=== PATIENT | female | born 1940 | race Caucasian/White ===

== ENCOUNTER 2023-08-07 18:17 | Emergency (ER) | payer MEDICARE ==
[2023-08-07] MEDS ORDERED: Boostrix 0.5 ML (Tdap) VIAL (>/=7 yrs of age) ONE (20:04)
[2023-08-07] MEDS ORDERED: Amoxicillin/Potassium Clav 875 MG TAB ONE (20:04)
[2023-08-07 20:47] LABS: #Basophils 0.06 10x3/uL (0.0-0.2); %Basophils 0.8 % (0.0-1.0); %Eosinophils 1.8 % (0.0-10.0); %Lymphocytes 20.7 % (21.0-51.0); %Monocytes 9.7 % (0.0-10.0); %Neutrophils 66.6 % (42.0-75.0); Hematocrit 39.4 % (36.0-47.0); Mean Corpuscular Hemoglobin 32.6 pg (27.0-31.0); Mean Corpuscular Volume 98.7 fL (78.0-98.0); Mean Platelet Volume 10.2 fL (7.4-10.4); Platelet Count 156 10x3/uL (130-400); RBC Distribution Width 13.2 % (11.5-14.5); Red Blood Cell (RBC) Count 3.99 mill/uL (4.20-5.40)
[2023-08-07 21:02] LABS: ALT (SGPT) 13 U/L (8-55); AST (SGOT) 19 U/L (5-34); Albumin 4.2 g/dL (3.4-4.8); Alkaline Phosphatase 64 U/L (40-110); Anion Gap 15 mmol/L (10-20); BUN (Urea Nitrogen) 21 mg/dL (9.8-20.1); Bilirubin, Total 1.4 mg/dL (0.2-1.2); Calc. Creatinine Clearance 0 mL/min (70-130); Calcium 9.8 mg/dL (7.8-10.44); Carbon Dioxide 23 mmol/L (23-31); Chloride 104 mmol/L (98-107); Estimated GFR 58; Globulin 3.1 g/dL (2.4-3.5); Glucose 104 mg/dL (83-110); Potassium 4.4 mmol/L (3.5-5.1); Protein, Total 7.3 g/dL (5.8-8.1); Sodium 138 mmol/L (136-145)
== END 2023-08-07 21:20 | disposition home or self-care (01) ==
LOC: ERS 18:17
DX: S91.352A Open bite, left foot, initial encounter (principal); I48.91 Unspecified atrial fibrillation; Z23 Encounter for immunization; Z79.899 Other long term (current) drug therapy; Z79.01 Long term (current) use of anticoagulants; W54.0XXA Bitten by dog, initial encounter
CPT/HCPCS: 36415; 80053; 85025; 90471; 90715